=== PATIENT | male | born 1980 | race Caucasian/White ===

== ENCOUNTER 2016-09-12 21:38 | Emergency (ER) | payer MEDICARE ==
[~2016-09-12] VITALS: Ht 177.8 cm; Wt 77.0 kg
[~2016-09-12 21:38] MED LIST: PREDNISONE20 MG PO; SUBOXONE 8 M1 TABLET SL
[2016-09-12] MEDS ORDERED: VALIUM5 MG PO (22:24)
[2016-09-12] MEDS ORDERED: NAPROSYN500 MG PO (22:24)
[2016-09-12] MEDS ORDERED: MEDROL DOSEPAK4 MG PO (22:24)
[2016-09-12 23:30] VITALS: BP 144/94
== END 2016-09-12 23:55 | disposition home or self-care (01) ==
LOC: EME 21:38
DX: M54.30 Sciatica, unspecified side (principal); R05 Cough
CPT/HCPCS: 99281; 99283; J1100; J3360